=== PATIENT | female | born 1965 | race African-American/Black ===

== ENCOUNTER 2018-09-23 05:14 | Emergency (ER) | payer MEDICARE, MEDICAID ==
[~2018-09-23] VITALS: Ht 160 cm; Wt 132.0 kg
[~2018-09-23 05:14] MED LIST: ASPI-986 PO; FERR325T30 PO; HYDR-4005 PO; KEPP500 PO; LAM1 PO; LISI10TA5 PO; TRAM50TA3; VALS1TAB33 PO; XALAO BOTHEYE
[2018-09-23] MEDS ORDERED: HYDROCODONE/ACETAMINOPHEN 5/325MG TABLET PO STA (06:32)
[2018-09-23] MEDS ORDERED: LEVETIRACETAM 1000MG/100ML 100 ML IV ONE (06:45)
[2018-09-23 06:47] LABS: CHLORIDE 103 mEq/L (98-107)
[2018-09-23 06:49] LABS: BASOPHILS % 0.4 % (0.0-2.0); EOSINOPHILS % 4.3 % (0.0-5.0); HEMATOCRIT. 38.8 % (36.0-48.0); HEMOGLOBIN. 12.7 g/dL (12.0-16.0); MEAN CORPUSCULAR HEMOGLOBIN 25.7 pg (28.0-32.0); MEAN CORPUSCULAR VOLUME 78.4 fL (81.0-99.0); MEAN PLATELET VOLUME 7.9 fl (7.4-10.4); MONOCYTES % 10.1 % (2.0-8.0); NEUTROPHILS % 53.2 % (40.0-76.0); PLATELET 292 x1000/uL (130-400); RED BLOOD CELL COUNT 4.94 mill/uL (4.2-5.4); RED CELL DISTRIBUTION WIDTH 17.3 % (11.6-14.6)
[2018-09-23 06:51] LABS: CLARITY URINE CLEAR (CLEAR); COLOR URINE YELLOW (YELLOW); ETHANOL BLOOD < 10 mg/dL; KETONES URINE NEGATIVE (NEGATIVE); LEUKOCYTE ESTERASE URINE TRACE (NEGATIVE); NITRITE URINE NEGATIVE (NEGATIVE); OCCULT BLOOD URINE NEGATIVE (NEGATIVE); PROTEIN URINE NEGATIVE (NEGATIVE); SPECIFIC GRAVITY URINE 1.018 (1.005-1.030); UROBILINOGEN URINE 0.2 E.U./dL (0.2-1.0)
[2018-09-23 07:09] LABS: METHADONE URINE SCREEN NEGATIVE (NEGATIVE)
[2018-09-23 07:10] LABS: *AMPHETAMINES SCREEN URINE NEGATIVE (NEGATIVE); *BARBITURATES SCREEN URINE NEGATIVE (NEGATIVE); CANNABINOID URINE SCREEN PRESUMTIVE POSITIVE (NEGATIVE); OPIATES URINE SCREEN PRESUMTIVE POSITIVE (NEGATIVE); PHENCYCLIDINE URINE SCREEN NEGATIVE (NEGATIVE)
[2018-09-23 07:11] LABS: *BENZODIAZEPINES SCREEN URINE NEGATIVE (NEGATIVE); *COCAINE SCREEN URINE NEGATIVE (NEGATIVE)
[2018-09-23 08:00] VITALS: BP 148/70
== END 2018-09-23 08:19 | disposition home or self-care (01) ==
LOC: ER 05:14
DX: G40.909 Epilepsy, unspecified, not intractable, without status epilepticus (principal); M79.18 Myalgia, other site; H40.9 Unspecified glaucoma; I10 Essential (primary) hypertension; Z86.73 Personal history of transient ischemic attack (TIA), and cerebral infarction without residual deficits; Z79.899 Other long term (current) drug therapy; Z88.8 Allergy status to other drugs, medicaments and biological substances
CPT/HCPCS: 36415; 80053; 80305; 80320; 81003; 85025; 96365; 99283; J1953; G0480

== ENCOUNTER 2023-07-27 12:21 | Emergency (ER) | payer MEDICARE, MEDICAID ==
[~2023-07-27] VITALS: Ht 162.6 cm; Wt 158.8 kg
[~2023-07-27 12:21] MED LIST changes: +LISI10TA26 PO; -LISI10TA5 PO
[2023-07-27 12:56] VITALS: O2SAT 96
[2023-07-27] MEDS: KETOROLAC 30MG/ML VIAL IM ONE (16:07)
[2023-07-27 19:02] VITALS: BP 138/80; PULSE 98; RESP 16; TEMP 98.6
== END 2023-07-27 19:14 | disposition home or self-care (01) ==
LOC: ER 12:33
DX: M13.872 Other specified arthritis, left ankle and foot (principal); M25.572 Pain in left ankle and joints of left foot; I10 Essential (primary) hypertension; H40.9 Unspecified glaucoma; Z86.73 Personal history of transient ischemic attack (TIA), and cerebral infarction without residual deficits
CPT/HCPCS: 99284; 73600; 73620; 96372; J1885

== ENCOUNTER 2024-01-11 00:38 | Emergency (ER) | payer MEDICARE, MEDICAID ==
[~2024-01-11] VITALS: Ht 167.6 cm; Wt 150.0 kg
[2024-01-11 00:41] VITALS: TEMP 98.1; O2SAT 100
[2024-01-11] MEDS: LEVETIRACETAM 500MG TABLET PO ONE (01:19)
[2024-01-11 01:29] LABS: BASOPHILS % 0.5 % (0.0-2.0); EOSINOPHILS % 3.7 % (0.0-5.0); HEMATOCRIT. 34.4 % (36.0-48.0); HEMOGLOBIN. 11.5 g/dL (12.0-16.0); LYMPHOCYTES % 31.9 % (20.0-50.0); MEAN CORPUSCULAR HEMOGLOBIN 27.9 pg (28.0-32.0); MEAN CORPUSCULAR HGB CONC 33.5 g/dL (31.0-37.0); MEAN CORPUSCULAR VOLUME 83.1 fL (81.0-99.0); MONOCYTES % 11.6 % (2.0-8.0); NEUTROPHILS % 52.3 % (40.0-76.0); PLATELET 262 x1000/uL (130-400); RED BLOOD CELL COUNT 4.14 mill/uL (4.2-5.4); RED CELL DISTRIBUTION WIDTH 15.8 % (11.6-14.6); WHITE BLOOD COUNT 4.9 x1000/uL (4.5-11.0)
[2024-01-11 01:43] LABS: CHLORIDE 103 mEq/L (98-107); SODIUM 139 mEq/L (136-145)
[2024-01-11 01:44] LABS: CALCIUM 9.4 mg/dL (8.7-10.4); CARBON DIOXIDE 31 mEq/L (21-32)
[2024-01-11 01:49] LABS: CREATININE 0.9 mg/dL (0.6-1.0); GLUCOSE 113 mg/dL (70-105); UREA NITROGEN BLOOD 13 mg/dL (9-23)
[2024-01-11 01:54] LABS: ETHANOL BLOOD < 10 mg/dL (<10)
[2024-01-11 03:13] VITALS: BP 129/70; PULSE 70; RESP 16; O2SAT 97
== END 2024-01-11 03:30 | disposition home or self-care (01) ==
LOC: ER 00:46
DX: G40.89 Other seizures (principal); H40.9 Unspecified glaucoma; I10 Essential (primary) hypertension; E11.9 Type 2 diabetes mellitus without complications; Z86.73 Personal history of transient ischemic attack (TIA), and cerebral infarction without residual deficits; Z79.899 Other long term (current) drug therapy
CPT/HCPCS: 36415; 80048; 80320; 85025; 93005; 99284; G0480